=== PATIENT | male | born 1955 | race Caucasian/White ===

== ENCOUNTER 2018-09-14 19:42 | Emergency (ER) | payer MEDICARE, MEDICAID, SELFPAY ==
[2018-09-14 19:43] VITALS: BP 98/54; PULSE 63; RESP 18; TEMP 36.4; O2SAT 98; BMI 30.7
--- NOTE | 2018-09-14 19:54 | XR_ITS ---
XR chest 2V HISTORY: Shortness of graft, former smoker, heart disease ITS.REASON: POSSIBLE FLUID ORDERING PHYSICIAN: Rey Mcdonald APRN PATIENT AGE: 63 years COMPARISON: None FINDINGS: Prior CABG. Cardiomegaly with pulmonary venous congestion consistent with CHF. There is a biventricular pacemaker with right atrial lead. Vertical density is noted in the right lung base may be due to area of atelectasis or infiltrate versus scarring. There is minimal pleural thickening in the right lung base laterally No acute bony findings. IMPRESSION: Prior CABG with CHF Right basilar atelectasis or infiltrate versus scarring
--- NOTE | 2018-09-14 20:06 | HMH.EDUTC ---
[facility] Disposition Clinical Impression: At risk for fluid volume overload CHF (congestive heart failure) Qualifiers: Heart failure type: unspecified Disposition: Home, Self-Care Condition on Discharge: Good Instructions: DI for Heart Failure Additional Instructions: Follow up with your heart doctor tomorrow. Continue your current medications as you already are taking them. GO TO THE ER FOR ANY WORSENING SYMPTOMS Referrals: Angelique Yang [Primary Care Provider] - Time of Disposition: 20:56 Medical Decision Making - Medical Records Medical records reviewed: Yes: I reviewed the patient's medical records. - Lakhwinder Inquiry Pt receiving controlled substance: No Lakhwinder was queried for this patient: No Vital Signs: 09/14/18 19:43 09/14/18 21:07 Temperature 97.6 F 97.6 F Temperature Source Temporal Artery Scan Temporal Artery Scan Pulse Rate 63 Pulse Rate [Left Radial] 63 Respiratory Rate 18 18 Blood Pressure 98/54 L Blood Pressure [Right Arm] 98/54 L Blood Pressure Mean [Right Arm] 68 Blood Pressure Source Automatic Cuff Blood Pressure Source [Right Arm] Automatic Cuff Blood Pressure Position Sitting Blood Pressure Position [Right Arm] Sitting 02 Sat by Pulse Oximetry 98 Oxygen Delivery Method Room Air Room Air Orders (Tests/Meds): ED MEDICATIONS Discontinued Medications Generic Name Dose Route Start Last Admin Trade Name Freq PRN Reason Stop Dose Admin Furosemide 20 mg 09/14/18 20:46 Lasix 20mg/2ml Vial IV 09/14/18 20:47 ONCE ONE Furosemide 20 mg 09/14/18 20:53 09/14/18 20:59 Lasix 20mg/2ml Vial IV 09/14/18 20:54 20 mg ONCE ONE Administration ORDERS Category Date Time Status Chest XR 2 view (NOT portable) [XR chest 2V] Stat Exams 09/14/18 19:54 Taken [facility] HPI - General Stated complaint: possible fluid Time Seen by Provider: 09/14/18 20:07 Mode of Arrival: Ambulatory Source of Information: Patient Limitations: No Limitations Description of Symptoms (Recalled from Triage Doc. by RN): SHORT WINDED, FLUID BUILD UP, NOT URINATING A LOT HEENT Symptoms (Recalled from RN notes): Yes Resp Symptoms (Recalled from RN notes): Yes Skin Symptoms (Recalled from RN notes): No MS Symptoms (Recalled from RN notes): No Functional Status (Recalled from RN notes): WNL - History of Present Illness Provider Complaint: He has a history of chf. at times he has got overloaded with fluid and had to get a lasix shot. He [employer] is at and he did not want to drive all the way to [facility]. He denies any chest pain. - Related Data Home Medications Medication Instructions Recorded Confirmed aspirin 325 mg tablet 325 mg PO DAILY 02/07/18 02/07/18 citalopram 40 mg tablet 40 mg PO DAILY tab 02/07/18 02/07/18 furosemide 80 mg tablet 80 mg PO DAILY 02/07/18 02/07/18 glipizide ER 5 mg tablet, extended 5 mg PO DAILY 02/07/18 02/07/18 release 24 hr hydroxyzine HCl 25 mg tablet 25 mg PO QHS tab 02/07/18 02/07/18 ipratropium-albuterol 0.5 mg-3 3 ml INHALATION QID 02/07/18 02/07/18 mg(2.5 mg base)/3 mL nebulization soln mometasone-formoterol HFA 100 2 puff INHALATION BID 02/07/18 02/07/18 mcg-5 mcg/actuation aerosol inhaler nitroglycerin 0.4 mg sublingual 0.4 mg SUBLINGUAL Q5-15M PRN 02/07/18 02/07/18 tablet omega-3 acid ethyl esters 1 gram 2 cap PO BID 02/07/18 02/07/18 capsule omeprazole 20 mg capsule,delayed 20 mg PO DAILY 02/07/18 02/07/18 release spironolactone 25 mg tablet 25 mg PO BID 02/07/18 02/07/18 Previous Rx's Medication Instructions Recorded atorvastatin 80 mg tablet 80 mg PO DAILY #30 tab 02/07/18 carvedilol 12.5 mg tablet 12.5 mg PO BID #60 tab 02/07/18 levothyroxine 25 mcg capsule 25 mcg PO DAILY #30 cap 02/07/18 lisinopril 5 mg tablet 5 mg PO BID #30 tab 02/07/18 Albuterol Sulfate [Albuterol HFA 2 puffs IH Q6HP PRN #1 inh 08/01/18 Inhaler] Azithromycin [Z-Rahul 250mg Tab] 250 mg PO UD DOSE PK #6
--- NOTE | 2018-09-14 20:33 | PC.NURSE ---
WHEN CALLED TO GET XRAY THEY SAID IT WOULD BE A LITTLE CAUSE THEY WHERE BACKED UP A LITTLE
[2018-09-14 21:07] VITALS: BP 98/54; PULSE 63; RESP 18; TEMP 36.4; O2SAT 98
== END 2018-09-14 21:08 | disposition home or self-care (01) ==
PROVIDERS: Emergency Provider Nurse Practitioner Family; PCP Family Medicine
DX: I50.43 Acute on chronic combined systolic (congestive) and diastolic (congestive) heart failure (principal); J44.9 Chronic obstructive pulmonary disease, unspecified; E11.9 Type 2 diabetes mellitus without complications; E78.5 Hyperlipidemia, unspecified; I10 Essential (primary) hypertension; E03.9 Hypothyroidism, unspecified
CPT/HCPCS: G0463; 71046; 96372; 99202